=== PATIENT | male | born 1995 | race Two or more races ===

== ENCOUNTER 2025-01-25 21:50 | Emergency (ER) | payer OTHER ==
[2025-01-25] MEDS: Acetaminophen/HYDROcodone 325-5 MG Tab PO ONE (23:15)
== END 2025-01-25 23:48 | disposition home or self-care (01) ==
LOC: JD.ED 21:50
DX: S52.022A Displaced fracture of olecranon process without intraarticular extension of left ulna, initial encounter for closed fracture (principal); W01.0XXA Fall on same level from slipping, tripping and stumbling without subsequent striking against object, initial encounter; Y93.89 Activity, other specified
CPT/HCPCS: 29105; 73080; 99283; A9270; 99284

== ENCOUNTER 2025-04-17 08:41 | Day surgery (SDC) | payer SELFPAY ==
[~2025-04-17 08:41] MED LIST: Sodium Chloride 0.9% 10 ML Syringe FLUSH PRN; Sodium Chloride 0.9% 10 ML Syringe FLUSH SCH
[2025-04-17] MEDS: Lactated Ringers 1,000 ML IV SCH (09:10)
[2025-04-17] MEDS ORDERED: Propofol 200 MG/20 ML SDV ONE (10:13)
== END 2025-04-17 11:25 | disposition home or self-care (01) ==
LOC: JD.SDS 08:41
PROVIDERS: ATTEND Surgery
DX: K29.50 Unspecified chronic gastritis without bleeding (principal); Z87.891 Personal history of nicotine dependence; Z79.899 Other long term (current) drug therapy
CPT/HCPCS: 43239; C9777; J2003; J2704; J7120; 00731